=== PATIENT | male | born 1970 | race Caucasian/White ===

== ENCOUNTER 2020-02-02 09:44 | Emergency (ER) | payer BC ==
[2020-02-02] MEDS ORDERED: Sodium Chloride 0.9% 10 ML Syringe FLUSH PRN ×2 (09:53→09:56)
[2020-02-02] MEDS ORDERED: Aspirin 81 MG Tab.Chew PO ONE (09:54)
[2020-02-02] MEDS ORDERED: Morphine 4 MG/ML Syringe IVPUSH ONE (09:54)
[2020-02-02] MEDS ORDERED: Nitroglycerin 0.4 MG Tab.SL SL ONE (09:55)
[2020-02-02] MEDS ORDERED: Ondansetron 4 MG/2 ML SDV IV ONE (09:59)
[2020-02-02] MEDS ORDERED: Sodium Chloride 0.9% 1,000 ML IV ONE (10:00)
[2020-02-02] MEDS ORDERED: Clopidogrel 75 MG Tab ONE (10:10)
[2020-02-02] MEDS ORDERED: Heparin Sodium 5,000 Units/ML Vial ONE (10:10)
[2020-02-02] MEDS ORDERED: Nitroglycerin/D5W (0.1 MG/ML) 25 MG/250 ML Bottle ONE (10:10)
[2020-02-02] MEDS ORDERED: Clopidogrel 75 MG Tab PO ONE (10:21)
[2020-02-02] MEDS ORDERED: Heparin Sodium 5,000 Units/ML Vial IVPUSH ONE (10:22)
--- NOTE | 2020-02-02 10:24 | CR ---
[id number] RAD/RAD Chest PA or AP 1V EXAM: FRONTAL CHEST INDICATION: Chest pain and shortness of breath. COMPARISON: None. DISCUSSION: The lungs are mildly hypoinflated. Mild linear scarring in both lung bases with no definite infiltrates. Normal heart size. Surgical clips in the lower neck. IMPRESSION: 1. No acute findings. Dung Green MD 02/02/20 [id number] Thank you for allowing us to participate in the care of your patient.
[2020-02-02] MEDS ORDERED: Nitroglycerin/D5W 25 MG/250 ML BOTTLE IV SCH (10:30)
[2020-02-02 10:31] LABS: ANION GAP 13.7 mmol/L (10-20); CHLORIDE,CL 105 mmol/L (98-107); SODIUM,NA 143 mmol/L (136-145)
--- NOTE | 2020-02-02 11:13 | EDM.PDOC ---
ED HPI GENERAL MEDICAL PROBLEM - General Stated Complaint: CHEST PAIN Time Seen by Provider: 02/02/20 09:45 Source of Information: Reports: Patient History Limitations: Reports: No Limitations - History of Present Illness INITIAL COMMENTS - FREE TEXT/NARRATIVE: Patient comes emergency department today from the clinic with concerns of chest pain. 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 He did not hit his head. He has no loss of conscious. He had no head neck or back pain and really had no complaints following the fall. He continued on with his route and then suddenly about 9:00 developed this midsternal precordial pressure squeezing sensation that is constant across his chest that radiates down both arms. His arms are numb and tingly. He is short of breath and anxious. He has been sweating since that time. He has had some nausea without vomiting. No weakness dizziness lightheadedness. No syncope. No pain into his back. No abdominal pain. Initially went to the clinic that brought him over to the emergency department for further evaluation. He is not a smoker nor does he have any early cardiac history or dissection history in his family's life. ED ROS GENERAL - Review of Systems Review Of Systems: Comprehensive ROS is negative, except as noted in HPI. ED EXAM, GENERAL - Physical Exam Exam: See Below Free Text/Narrative:: The patient does have a positive Velez sign with his hand clenched over his sternum. Exam Limited By: No Limitations General Appearance: Alert, WD/WN, Mild Distress Eye Exam: Bilateral Eye: EOMI Ears: Normal External Exam, Normal TMs Nose: Normal Inspection, Normal Mucosa Throat/Mouth: Normal Inspection, Normal Lips, Normal Oropharynx Head: Atraumatic, Normocephalic Neck: Normal Inspection, Supple Respiratory/Chest: No Respiratory Distress, Lungs Clear, Normal Breath Sounds, No Accessory Muscle Use Cardiovascular: Normal Peripheral Pulses, Regular Rate, Rhythm Peripheral Pulses: 2+: Radial (L), Radial (R), Posterior Tibial (L), Posterior Tibial (R), Dorsalis Pedis (L), Dorsalis Pedis (R) GI/Abdominal: Normal Bowel Sounds, Soft, Non-Tender (Male) Exam: Deferred Rectal (Males) Exam: Deferred Back Exam: Normal Inspection, Full Range of Motion Extremities: Normal Inspection, Normal Range of Motion, No Pedal Edema, Normal Capillary Refill Neurological: Alert, Oriented, Normal Cognition, No Motor/Sensory Deficits Psychiatric: Normal Affect, Normal Mood Skin Exam: Intact, Cool, Diaphoretic, Pallor Lymphatic: No Adenopathy EKG INTERPRETATION EKG Date: 02/02/20 Time: 09:46 Rhythm: NSR Rate (Beats/Min): 73 [place]: Normal P-Wave: Present QRS: Normal ST-T: Elevated (II,III AVF with depression in AVL.) QT: Normal Comparison: NA - No Prior EKG Course - Orders/Labs/Meds Orders: Active Orders 24 hr Category Date Time Status EKG Documentation Completion [RC] STAT Care 02/02/20 09:53 Active CBC WITH AUTO DIFF [HEME] Stat Lab 02/02/20 09:50 Received INR,PT,PROTHROMBIN TIME [COAG] Stat Lab 02/02/20 09:50 Received PTT,PARTIAL THROMBOPLSTIN TIME [COAG] Stat Lab 02/02/20 09:50 Received Nitroglycerin/D5W [Nitroglycerin 25 MG/D5W 250 ML] Med 02/02/20 10:30 Active 25 mg in 250 ml IV TITRATE Sodium Chloride 0.9% [Saline Flush] Med 02/02/20 09:53 Active 10 ml FLUSH ASDIRECTED PRN Sodium Chloride 0.9% [Saline Flush] Med 02/02/20 09:56 Active 10 ml FLUSH ASDIRECTED PRN Peripheral IV Insertion Adult [OM.PC] Stat Oth 02/02/20 09:53 Ordered Peripheral IV Insertion Adult [OM.PC] Stat Oth 02/02/20 09:56 Ordered Medication Orders Nitroglycerin/Dextrose (Nitroglycerin 25 Mg/D5w 250 Ml) 25 mg in 250 mls @ 6 mls/hr IV TITRATE BELLA; Protocol Sodium Chloride (Saline Flush) 10 ml FLUSH ASDIRECTED PRN PRN Reason: Keep Vein Open Sodium Chloride (Saline Flush) 10 ml FLUSH ASDIRECTED PRN PRN Reason: Keep Vein Open Labs: Laboratory Tests 02/02/20 02/02/20 02/02/20 Range/Units 09:50 09:50 09:50 D-Dimer, Quantitative 0.31 (<=0.58) mg/LFEU Sodium 143 (136-145) mmol/L Potassium 4.7 (3.5-5.1) mmol/L Chloride 105 (98-107) mmol/L Carbon Dioxide 29 (21-32) mmol/L Anion Gap 13.7 (10-20) mmol/L BUN 16 (7-18) mg/dL Creatinine 1.3 (0.70-1.30) mg/dL Est Cr Clr Drug Dosing TNP Estimated GFR (MDRD) 58 Glucose 215 H (74-106) mg/dL Lactic Acid 1.2 (0.4-2.0) mmol/L Calcium 9.1 (8.5-10.1) mg/dL Corrected Calcium 8.78 (8.5-10.1) mg/dL Total Bilirubin 1.0 (0.2-1.0) mg/dL AST 26 (15-37) U/L ALT 42 (16-63) U/L Alkaline Phosphatase 104 (46-116) U/L POC Troponin I (0.00-0.08) ng/mL Total Protein 8.1 (6.4-8.2) g/dL Albumin 4.4 (3.4-5.0) g/dL Globulin 3.7 Albumin/Globulin Ratio 1.19 02/02/20 Range/Units 10:07 D-Dimer, Quantitative (<=0.58) mg/LFEU Sodium (136-145) mmol/L Potassium (3.5-5.1) mmol/L Chloride (98-107) mmol/L Carbon Dioxide (21-32) mmol/L Anion Gap (10-20) mmol/L BUN (7-18) mg/dL Creatinine (0.70-1.30) mg/dL Est Cr Clr Drug Dosing Estimated GFR (MDRD) Glucose (74-106) mg/dL Lactic Acid (0.4-2.0) mmol/L Calcium (8.5-10.1) mg/dL Corrected Calcium (8.5-10.1) mg/dL Total Bilirubin (0.2-1.0) mg/dL AST (15-37) U/L ALT (16-63) U/L Alkaline Phosphatase (46-116) U/L POC Troponin I 0.00 (0.00-0.08) ng/mL Total Protein (6.4-8.2) g/dL Albumin (3.4-5.0) g/dL Globulin Albumin/Globulin Ratio Meds: Medications Generic Name Dose Route Start Last Admin Trade Name Freq PRN Reason Stop Dose Admin Nitroglycerin/Dextrose 25 mg in 250 mls @ 6 mls/hr 02/02/20 10:30 Nitroglycerin 25 Mg/D5w 250 Ml IV TITRATE BELLA Protocol 10 MCG/MIN Sodium Chloride 10 ml 02/02/20 09:53 Saline Flush FLUSH ASDIRECTED PRN Keep Vein Open Sodium Chloride 10 ml 02/02/20 09:56 Saline Flush FLUSH ASDIRECTED PRN Keep Vein Open Discontinued Medications Generic Name Dose Route Start Last Admin Trade Name Freq PRN Reason Stop Dose Admin Aspirin 324 mg 02/02/20 09:54 Aspirin PO 02/02/20 09:55 ONETIME ONE Clopidogrel Bisulfate 600 mg 02/02/20 10:21 Plavix PO 02/02/20 10:22 ONETIME ONE Heparin Sodium (Porcine) 4,000 units 02/02/20 10:22 Heparin Sodium IVPUSH 02/02/20 10:23 .BOLUS ONE Morphine Sulfate 4 mg 02/02/20 09:54 Morphine IVPUSH 02/02/20 09:55 ONETIME ONE Nitroglycerin 0.4 mg 02/02/20 09:55 Nitrostat SL 02/02/20 09:56 ONETIME ONE Ondansetron HCl 4 mg 02/02/20 09:59 Zofran IV 02/02/20 10:00 ONETIME ONE - Re-Assessments/Exams Free Text/Narrative Re-Assessment/Exam: 02/02/20 11:13 Patient initially was given 324 of aspirin. His EKG did show ST elevation in lead II,III and AVF. and mild depression in AVL. I did hold on the plavix and heparin initially with the concerns of the falls and possibility of dissection or other pathology. NItro 1 SL with improvement of symptoms but still present. Morphine 4mg IVP The ambulance was [facility] for a possible transfer of a STEMI. I emergently called and spoke with Dr. Rm from Cardiology at [facility] in [place]. HPI ER COURSE findings and my concerns were relayed to her. We discussed other pathologies with the patient's fall such as a dissection. The patient's blood pressures are even on bilateral arms. And his chest x-ray does not show any widened mediastinum. He did not have any complaints of back pain or other symptomatology following the fall until about 9:00 which was about 3 hours later. Also talked with the motor vehicle or caravan salesperson and the decision to heparinize and give Plavix was made. Accepted him in transfer and he was emergently transferred to the [facility] in [place]. I discussed the plan of care with the patient who is understanding of this his questions were answered and he was comfortable with this plan. I did start the patient on a nitro gtt prior to transferring him emergently by ambulance to the photo lab specialist at [facility] in [place]. 02/02/20 11:20 Departure - Departure Time of Disposition: 10:00 Disposition: DC/Tfer to Acute Hospital 02 Reason for Transfer *Q: Primary PCI Indicated Clinical Impression: STEMI (ST elevation myocardial infarction) Qualifiers: Involved coronary artery: unspecified coronary artery Qualified Code(s): I21.3 - ST elevation (STEMI) myocardial infarction of unspecified site Referrals: PCP,Unknown [Primary Care Provider] - Forms: Interfacility Transfer EMTALA Critical Care Note - Critical Care Note Total Time (mins): 35 Comments: 35 minutes of Critical care time in direct patient care management and consultation with associate director data & analytics and consider of other pathologies as well for this patient with a STEMI. - My Orders Last 24 Hours: My Active Orders 02/02/20 09:50 CBC WITH AUTO DIFF [HEME] Stat INR,PT,PROTHROMBIN TIME [COAG] Stat PTT,PARTIAL THROMBOPLSTIN TIME [COAG] Stat 02/02/20 09:53 EKG Documentation Completion [RC] STAT Sodium Chloride 0.9% [Saline Flush] 10 ml FLUSH ASDIRECTED PRN Peripheral IV Insertion Adult [OM.PC] Stat 02/02/20 09:56 Sodium Chloride 0.9% [Saline Flush] 10 ml FLUSH ASDIRECTED PRN Peripheral IV Insertion Adult [OM.PC] Stat 02/02/20 10:30 Nitroglycerin/D5W [Nitroglycerin 25 MG/D5W 250 ML] 25 mg in 250 ml IV TITRATE - Assessment/Plan Last 24 Hours: My Active Orders 02/02/20 09:50 CBC WITH AUTO DIFF [HEME] Stat INR,PT,PROTHROMBIN TIME [COAG] Stat PTT,PARTIAL THROMBOPLSTIN TIME [COAG] Stat 02/02/20 09:53 EKG Documentation Completion [RC] STAT Sodium Chloride 0.9% [Saline Flush] 10 ml FLUSH ASDIRECTED PRN Peripheral IV Insertion Adult [OM.PC] Stat 02/02/20 09:56 Sodium Chloride 0.9% [Saline Flush] 10 ml FLUSH ASDIRECTED PRN Peripheral IV Insertion Adult [OM.PC] Stat 02/02/20 10:30 Nitroglycerin/D5W [Nitroglycerin 25 MG/D5W 250 ML] 25 mg in 250 ml IV TITRATE Assessment:: STEMI Inferior Leads. Critical Care time. Plan: Transfer emergency to [facility] to the photo lab specialist for angio-gram and further evaluation.
== END 2020-02-02 10:20 | disposition short-term general hospital (02) ==
LOC: VM.ED 09:44
DX: I21.3 ST elevation (STEMI) myocardial infarction of unspecified site (principal)
CPT/HCPCS: 36415; 71045; 80053; 83605; 84484; 85025; 85379; 85610; 85730; 93005; 99285-25; A9270-GY; J1644; J2270; J2405; J3490; J7030